=== PATIENT | male | born 1985 ===

== ENCOUNTER 2018-07-01 16:04 | Emergency (ER) | payer OTHER ==
[2018-07-01] MEDS ORDERED: Oxycodone/Acetaminophen 5/325 mg Tab PO STA (16:29)
--- NOTE | 2018-07-01 16:55 | RAD ---
PROCEDURE: Left Hand Radiographs. HISTORY: finger injury COMPARISON: None. FINDINGS: BONES: No definitive evidence of acute displaced fracture nor dislocation however there appears to be a significant avulsion injury of the distal soft tissues of the 3rd finger which may extend to the periosteal surface of the distal tuft.. JOINTS: Normal. No osteoarthritic changes. SOFT TISSUES: As above. OTHER FINDINGS: None. IMPRESSION: There is a significant avulsion injury of the distal soft tissues 3rd finger which may extend to the periosteal surface of the distal tuft. No definitive evidence of acute displaced fracture nor dislocation.
[2018-07-01] MEDS ORDERED: Oxycodone/Acetaminophen 5/325 mg Tab ONE (17:07)
[2018-07-01] MEDS ORDERED: ceFAZolin IV 1 gm in Dextrose 1 GM/50 ML BAG IVPB ONE (17:08)
--- NOTE | 2018-07-01 17:12 | C.PDOC ---
History Of Present Illness Patient is a 33 year old male who presents to the ED status post left third finger laceration and partial amputation of distal tip of finger. Patient states that injury occurred at home with a knife. Patient is a right hand dominant. Tetanus UTD. Time Seen by Provider: 07/01/18 16:18 Chief Complaint (Nursing): Finger,Hand,&Wrist History Per: Patient History/Exam Limitations: no limitations Onset/Duration Of Symptoms: Hrs Recent travel outside of the [place]: No Additional History Per: Patient Past Medical History Reviewed: Historical Data, Nursing Documentation, Vital Signs Vital Signs: Last Vital Signs Temp 97.9 F 07/01/18 16:16 Pulse 83 07/01/18 16:16 Resp 20 07/01/18 16:16 BP 144/76 07/01/18 16:16 Pulse Ox 100 07/01/18 16:16 - Medical History PMH: No Chronic Diseases Surgical History: No Surg Hx Family History: States: No Known Family Hx - Social History Hx Alcohol Use: No Hx Substance Use: No Review Of Systems Except As Marked, All Systems Reviewed And Found Negative. Skin: Positive for: Other (left third finger laceration ) Physical Exam - Physical Exam Appears: Non-toxic, No Acute Distress Skin: Normal Color, Warm, Dry Cardiovascular: Rhythm Regular, No Murmur Respiratory: Normal Breath Sounds, No Rales, No Rhonchi, No Wheezing Extremity: Other (partial amputation of digital phalynx with tip still attached ) Neurological/Psych: Oriented x3, Normal Speech, Normal Cognition ED Course And Treatment O2 Sat by Pulse Oximetry: 100 (on RA) Pulse Ox Interpretation: Normal - Other Rad Xray Lft Hand X-Ray: Viewed By Me, Read By Radiologist Interpretation: IMPRESSION: There is a significant avulsion injury of the distal soft tissues 3rd finger which may extend to the periosteal surface of the distal tuft. No definitive evidence of acute displaced fracture nor dislocation. Laceration - Laceration Repair No standard instances Wound Length (In cm): 4cm laceration flat distal tip involving nail on radial side Wound Cleansed With: Betadine Anesthesia: Lidocaine 1% (10ml ) Wound Examination: Irrigated With Saline (500cc ) Wound Closure: Suture Suture Technique And Material Used: Nylon (6 5o nylon and 3 4o nylon sutures. bacitracin applied. ) Medical Decision Making Medical Decision Making: Plan: Xray Lft Hand Percocet 5/325mg PO Ancef 1000mg IVPB Distal tip of left finger involving piece of nail 17:00. Consult with hand Dr. Gail Weeks. Awaiting call back Discussed with Dr. Weeks. Suggested betadine saline cleanse with xeroform dressing and peroxide. States he will see patient in office in three days. Picture of injury sent via text. Stated that nothing to do via repair at this time. Distal tip had repairable laceration. Dr. Weeks consulted again. Agreed to laceration repair. Patient tolerated procedure well. Wound check in 2 days. Suture removal in 10 days. Disposition Discussed With Dr.: Mike Weeks Counseled Patient/Family Regarding: Studies Performed, Diagnosis, Need For Followup - Disposition Referrals: Mike Weeks MD [Staff Provider] - Disposition: HOME/ ROUTINE Disposition Time: 18:50 Condition: STABLE Additional Instructions: keep wound dry for 24 hours wound check within 2 days suture removal in 10 days warm water and soap to clean apply bacitracin twice daily return to ER if symptoms worsens or progress Prescriptions: Acetaminophen/Codeine [Tylenol/Codeine 300 MG/30 MG] 1 tab PO Q6H PRN #12 tab PRN Reason: Pain, Severe (8-10) Cephalexin [Keflex] 500 mg PO QID #40 capsule Instructions: Laceration Repair, Wound Care (DC), Common Finger Injuries (DC) Forms: Gen Discharge Inst Lao, Sien (Lao) Print Language: UZBEK - Clinical Impression Clinical Impression: Laceration - Scribe Statement The provider has reviewed the documentation as recorded by the Michelle Wong All medical record entries made by the Scribyamila were at my direction and persona lly dictated by me. I have reviewed the chart and agree that the record accurately reflects my personal performance of the history, physical exam, medical decision making, and the department course for this patient. I have also personally directed, reviewed, and agree with the discharge instructions and disposition.
[2018-07-01] MEDS ORDERED: Lidocaine 1% Inj (20ml) INFIL ONE (18:01)
[2018-07-01] MEDS ORDERED: Lidocaine Hydrochloride 5 ML INJ ONE (18:09)
[2018-07-01] MEDS ORDERED: Bacitracin 500 Units/gm Oint Foilpak UD TOP ONE (18:50)
[2018-07-01] MEDS ORDERED: Bacitracin 500 Units/gm Oint Foilpak UD ONE (19:05)
[2018-07-01 19:10] VITALS: BP 137/76; PULSE 77; RESP 18; TEMP 98.7
[2018-07-02 16:40] VITALS: O2SAT 100
== END 2018-07-01 19:10 | disposition home or self-care (01) ==
LOC: C.ER 16:04
DX: S61.213A Laceration without foreign body of left middle finger without damage to nail, initial encounter (principal); W26.0XXA Contact with knife, initial encounter; Y92.009 Unspecified place in unspecified non-institutional (private) residence as the place of occurrence of the external cause
CPT/HCPCS: 12002; 73130; 99284; J0690

== ENCOUNTER 2018-07-03 11:54 | Emergency (ER) | payer SELFPAY, OTHER | END 2018-07-03 14:30 | disposition home or self-care (01) | LOC: C.ER 11:54 ==